=== PATIENT | male | born 1995 ===

== ENCOUNTER 2017-07-16 21:11 | Emergency (ER) | payer OTHER ==
[2017-07-16 21:19] VITALS: O2SAT 100
[2017-07-16] MEDS: Sodium Chloride 0.9% 1,000 ML IV STA (21:45)
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
[2017-07-16] MEDS ORDERED: HYDROmorphone 0.5 mg/0.5 ml ISec ONE (22:46)
[2017-07-16] MEDS: HYDROmorphone 0.5 mg/0.5 ml ISec IVP STA (22:47)
[2017-07-16] MEDS: Lactated Ringer's 1,000 ML IV SCH (23:13)
[2017-07-16 23:53] VITALS: BP 120/64; PULSE 90; RESP 19; TEMP 98.2
[2017-07-16 23:58] LABS: BASO # 0.1 K/uL (0.0-0.2); BASO % 0.5 % (0.0-2.0); EOS # 0.1 K/uL (0.0-0.7); HEMATOCRIT 46.7 % (35.0-51.0); LYMPH # 5.6 K/uL (1.0-4.3); LYMPH % 42.5 % (20.0-40.0); MEAN CORPUSCULAR HEMOGLOBIN 29.8 pg (27.0-31.0); MEAN CORPUSCULAR HGB CONC 33.1 g/dL (33.0-37.0); MEAN PLATELET VOLUME 11.1 fl (7.2-11.7); MONO # 0.9 K/uL (0.0-0.8); MONO % 6.9 % (0.0-10.0); NEUT # 6.5 K/uL (1.8-7.0); NEUT % 49.1 % (50.0-75.0); NRBC % 0.2 % (0.0-0.0); RED CELL DISTRIBUTION WIDTH 13.3 % (11.5-14.5); WHITE BLOOD COUNT 13.2 K/uL (4.8-10.8)
[2017-07-17 00:03] LABS: ALB/GLOB RATIO 1.7 (1.0-2.1); ALKALINE PHOSPHATASE 81 U/L (38-126); ALT/SGPT 34 U/L (21-72); AST/SGOT 27 U/L (17-59); BILIRUBIN,TOTAL 1.3 mg/dl (0.2-1.3); BLOOD UREA NITROGEN 25 mg/dl (9-20); CALCIUM 10.1 mg/dL (8.4-10.2); CARBON DIOXIDE 21 mmol/L (22-30); CHLORIDE 101 mmol/L (98-107); GFR AFRICAN-AMERICAN > 60; GLUCOSE,RANDOM 118 mg/dL (75-110); POTASSIUM 3.4 MMOL/L (3.6-5.0); SODIUM 142 mmol/l (132-148); TOTAL PROTEIN 8.1 G/DL (6.3-8.2)
== END 2017-07-17 00:30 | disposition home or self-care (01) ==
LOC: H.ER 21:11
DX: T24.1 Burn of first degree of lower limb, except ankle and foot (principal); T24.239A Burn of second degree of unspecified lower leg, initial encounter; X11.8XXA Contact with other hot tap-water, initial encounter; Y99.0 Civilian activity done for income or pay
CPT/HCPCS: 80053; 85025; 90471; 90715; 96374; 96375; 99283; J1170; J1885; J2270; J7040; J7120